=== PATIENT | male | born 2000 | race Caucasian/White ===

== ENCOUNTER 2024-08-10 21:52 | Emergency (ER) | payer BC ==
[2024-08-11] MEDS: Dexamethasone 4 MG Tab PO ONE (00:02)
== END 2024-08-11 00:27 | disposition home or self-care (01) ==
LOC: MW.ED 21:52
DX: J02.8 Acute pharyngitis due to other specified organisms (principal); Z79.899 Other long term (current) drug therapy; Z75.8 Other problems related to medical facilities and other health care
CPT/HCPCS: 87428; 87651; 99283; J8540